=== PATIENT | female | born 1995 | race African-American/Black ===

== ENCOUNTER 2019-12-15 12:36 | Inpatient (IN) | payer MEDICAID ==
[~2019-12-15] VITALS: Ht 162.6 cm; Wt 68.5 kg
[2019-12-15] MEDS ORDERED: ZOLPIDEM TARTRATE 10 MG TABLET PO PRN (14:15)
[2019-12-15] MEDS ORDERED: CARI1.5C PO (14:25)
[2019-12-15] MEDS ORDERED: PROZ10 PO (14:26)
[2019-12-15] MEDS ORDERED: HYDR-4031 PO (14:27)
[2019-12-15] MEDS ORDERED: LITH600 PO (14:28)
[2019-12-15] MEDS ORDERED: PRAZ1 PO (14:28)
[2019-12-15 17:35] VITALS: BP 117/72
[2019-12-15] MEDS ORDERED: DiphenhydrAMINE HCL 50 MG/ML VIAL IM ONE (17:45)
[2019-12-15] MEDS ORDERED: LORazepam 2 MG/ML VIAL IM ONE (17:45)
[2019-12-15] MEDS ORDERED: HALOPERIDOL LACTATE 5 MG/ML VIAL IM ONE (17:45)
[2019-12-15] MEDS ORDERED: HALOPERIDOL LACTATE 5 MG/ML VIAL ONE (17:48)
[2019-12-15] MEDS ORDERED: DiphenhydrAMINE HCL 50 MG/ML VIAL ONE (17:48)
[2019-12-15] MEDS ORDERED: LORazepam 2 MG/ML VIAL ONE (17:48)
[2019-12-16 07:49] LABS: BASOPHILS % (AUTO) 0.4 % (0.0-2.0); EOSINOPHILS % (AUTO) 4.3 % (1.0-6.0); HEMATOCRIT 43.7 % (36-46); HEMOGLOBIN 14.5 g/dL (12.0-16.0); LYMPHOCYTES # (AUTO) 1.7 K/uL (1.0-4.8); LYMPHOCYTES % (AUTO) 40.6 % (22.0-44.0); MEAN CORPUSCULAR HEMOGLOBIN 28.8 pg (26.0-34.0); MEAN CORPUSCULAR HGB CONC 33.3 G/dL (31.0-37.0); MEAN CORPUSCULAR VOLUME 87 fL (80-100); MONOCYTES # (AUTO) 0.5 K/uL (0.1-1.0); MONOCYTES % (AUTO) 11.3 % (2.0-9.0); NEUTROPHILS # (AUTO) 1.8 K/uL (1.8-7.7); NEUTROPHILS % (AUTO) 43.4 % (40.0-70.0); PLATELET COUNT (AUTO) 226 K/uL (150-450); RED BLOOD CELL COUNT(AUTO) 5.05 MIL/uL (4.00-5.20); RED CELL DISTRIBUTION WIDTH 14.5 % (11.5-14.5)
[2019-12-16 08:07] LABS: ALANINE AMINOTRANSFERASE 22 U/L (12-78); ALBUMIN 3.8 g/dL (3.4-5.0); ALKALINE PHOSPHATASE 71 U/L (46-116); ANION GAP 8 mmol/L (8-16); ASPARTATE AMINOTRANSFERASE 25 U/L (15-37); BILIRUBIN,TOTAL 0.5 mg/dL (0.1-1.0); CARBON DIOXIDE 27 mmol/L (22-29); CHLORIDE 104 mmol/L (98-107); CREATININE 0.86 mg/dL (0.60-1.30); GLOMERULAR FILTR. RATE CALC > 60 mL/min (>60); GLUCOSE,RANDOM 68 mg/dL (70-110); HCG,QUANTITATIVE < 1 mIU/mL (0-6); POTASSIUM 4.2 mmol/L (3.5-5.1); SODIUM SERUM 139 mmol/L (136-145); TOTAL PROTEIN, SERUM 7.1 g/dL (6.4-8.2); UREA NITROGEN, BLOOD 9 mg/dL (7-18)
[2019-12-16] MEDS ORDERED: LOPERAMIDE HCL 2 MG CAPSULE PO PRN (08:30)
[2019-12-16] MEDS ORDERED: ONDANSETRON HCL 4 MG TABLET PO PRN (08:30)
[2019-12-16] MEDS ORDERED: GuaiFENesin/D-METHORPHAN [SUGAR-FREE] 200-20MG/10 ML SYRUP UDCUP PO PRN (08:30)
[2019-12-16] MEDS ORDERED: ALBUTEROL SULFATE HFA 90 MCG/PUFF 8 GM INHALER IH PRN (08:30)
[2019-12-16] MEDS ORDERED: PETROLATUM,WHITE 28 GM JELLY TP PRN (08:30)
[2019-12-16] MEDS ORDERED: MAG HYDROX/AL HYDROX/SIMETH ES 30 ML SUSPENSION UDCUP PO PRN (08:30)
[2019-12-16] MEDS ORDERED: MAGNESIUM HYDROXIDE SUSPENSION 30 ML UDCUP PO PRN (08:30)
[2019-12-16] MEDS ORDERED: ACETAMINOPHEN 325 MG TABLET PO PRN (08:30)
[2019-12-16] MEDS ORDERED: NICOTINE 14 MG/24 HOUR PATCH TD PRN (08:30)
[2019-12-16] MEDS ORDERED: DOCUSATE SODIUM 100 MG CAPSULE PO PRN (08:30)
[2019-12-16] MEDS ORDERED: CloNIDine HCL 0.1 MG TABLET PO PRN (08:30)
[2019-12-16] MEDS: BACITRACIN 28.4 GM OINTMENT TP SCH ×2 (09:12→17:11)
[2019-12-16] MEDS: FLUoxetine HCL 20 MG CAPSULE PO SCH (09:59)
[2019-12-16] MEDS: LORazepam 2 MG TABLET PO PRN (09:59)
[2019-12-16] MEDS: LITHIUM CARBONATE 600 MG CAPSULE PO SCH ×2 (09:59→17:11)
[2019-12-16 16:11] VITALS: BP 110/69
[2019-12-16] MEDS: CIPROFLOXACIN HCL 0.3% 2.5 ML OPHTHALMIC SOLUTION OS SCH (17:12)
[2019-12-16] MEDS: PRAZOSIN HCL 1 MG CAPSULE PO SCH (20:39)
[2019-12-16] MEDS: OLANZapine 5 MG TABLET PO SCH (20:39)
[2019-12-16] MEDS: QUEtiapine FUMARATE 100 MG TABLET PO SCH (20:41)
[2019-12-17 08:40] VITALS: BP 112/59
[2019-12-17] MEDS: LITHIUM CARBONATE 600 MG CAPSULE PO SCH ×2 (08:44→16:35)
[2019-12-17] MEDS: FLUoxetine HCL 20 MG CAPSULE PO SCH (08:44)
[2019-12-17] MEDS: CIPROFLOXACIN HCL 0.3% 2.5 ML OPHTHALMIC SOLUTION OS SCH ×2 (08:45→16:40)
[2019-12-17] MEDS: BACITRACIN 28.4 GM OINTMENT TP SCH ×2 (09:17→16:39)
[2019-12-17] MEDS: PRAZOSIN HCL 1 MG CAPSULE PO SCH (16:34)
[2019-12-17] MEDS: HALOPERIDOL 5 MG TABLET PO PRN (16:35)
[2019-12-17] MEDS: LORazepam 2 MG TABLET PO PRN (16:36)
[2019-12-17 17:30] VITALS: BP 113/67
[2019-12-17] MEDS: QUEtiapine FUMARATE 100 MG TABLET PO SCH (20:26)
[2019-12-17] MEDS: OLANZapine 5 MG TABLET PO SCH (20:26)
[2019-12-18 08:24] VITALS: BP 102/77
[2019-12-18] MEDS: LITHIUM CARBONATE 600 MG CAPSULE PO SCH ×2 (09:07→16:25)
[2019-12-18] MEDS: HALOPERIDOL 5 MG TABLET PO PRN (09:07)
[2019-12-18] MEDS: LORazepam 2 MG TABLET PO PRN (09:07)
[2019-12-18] MEDS: FLUoxetine HCL 20 MG CAPSULE PO SCH (09:07)
[2019-12-18] MEDS: BACITRACIN 28.4 GM OINTMENT TP SCH ×2 (09:34→16:24)
[2019-12-18] MEDS: CIPROFLOXACIN HCL 0.3% 2.5 ML OPHTHALMIC SOLUTION OS SCH ×2 (09:35→16:24)
[2019-12-18] MEDS ORDERED: DiphenhydrAMINE HCL 50 MG/ML VIAL ONE (11:44)
[2019-12-18] MEDS ORDERED: LORazepam 2 MG/ML VIAL ONE (11:44)
[2019-12-18] MEDS ORDERED: HALOPERIDOL LACTATE 5 MG/ML VIAL ONE (11:45)
[2019-12-18] MEDS ORDERED: LORazepam 2 MG/ML VIAL IM ONE (12:00)
[2019-12-18] MEDS ORDERED: HALOPERIDOL LACTATE 5 MG/ML VIAL IM ONE (12:00)
[2019-12-18] MEDS ORDERED: DiphenhydrAMINE HCL 50 MG/ML VIAL IM ONE (12:00)
[2019-12-18 17:05] VITALS: BP 110/75
[2019-12-18] MEDS: OLANZapine 5 MG TABLET PO SCH (20:54)
[2019-12-18] MEDS: PRAZOSIN HCL 1 MG CAPSULE PO SCH (20:54)
[2019-12-18] MEDS: QUEtiapine FUMARATE 100 MG TABLET PO SCH (20:54)
[2019-12-19 05:39] VITALS: BP 105/68
[2019-12-19] MEDS: FLUoxetine HCL 20 MG CAPSULE PO SCH (07:59)
[2019-12-19] MEDS: LITHIUM CARBONATE 600 MG CAPSULE PO SCH ×2 (07:59→16:18)
[2019-12-19] MEDS: BACITRACIN 28.4 GM OINTMENT TP SCH ×2 (08:01→16:19)
[2019-12-19] MEDS: CIPROFLOXACIN HCL 0.3% 2.5 ML OPHTHALMIC SOLUTION OS SCH ×2 (08:02→16:19)
[2019-12-19] MEDS: LORazepam 2 MG TABLET PO PRN ×2 (08:19→15:12)
[2019-12-19 08:40] VITALS: BP 136/68
[2019-12-19] MEDS: HALOPERIDOL 5 MG TABLET PO PRN (15:12)
[2019-12-19 16:18] VITALS: BP 111/57
[2019-12-19] MEDS: PRAZOSIN HCL 1 MG CAPSULE PO SCH (21:50)
[2019-12-19] MEDS: OLANZapine 5 MG TABLET PO SCH (21:50)
[2019-12-19] MEDS: QUEtiapine FUMARATE 100 MG TABLET PO SCH (21:50)
[2019-12-20 01:25] VITALS: BP 107/64
[2019-12-20] MEDS: LORazepam 2 MG TABLET PO PRN ×2 (07:11→16:00)
[2019-12-20] MEDS: BACITRACIN 28.4 GM OINTMENT TP SCH ×2 (08:09→16:00)
[2019-12-20] MEDS: CIPROFLOXACIN HCL 0.3% 2.5 ML OPHTHALMIC SOLUTION OS SCH ×2 (08:09→15:59)
[2019-12-20] MEDS: FLUoxetine HCL 20 MG CAPSULE PO SCH (08:09)
[2019-12-20] MEDS: LITHIUM CARBONATE 600 MG CAPSULE PO SCH ×2 (08:09→15:59)
[2019-12-20 08:42] VITALS: BP 138/90
[2019-12-20] MEDS ORDERED: LORazepam 2 MG/ML VIAL IM ONE (10:15)
[2019-12-20] MEDS ORDERED: HALOPERIDOL LACTATE 5 MG/ML VIAL IM ONE (10:15)
[2019-12-20] MEDS ORDERED: DiphenhydrAMINE HCL 50 MG/ML VIAL IM ONE (10:15)
[2019-12-20] MEDS: HALOPERIDOL 5 MG TABLET PO PRN (15:59)
[2019-12-20] MEDS: IBUPROFEN 400 MG TABLET PO PRN (16:00)
[2019-12-20 16:13] VITALS: BP 108/60
[2019-12-20] MEDS: OLANZapine 5 MG TABLET PO SCH (20:21)
[2019-12-20] MEDS: QUEtiapine FUMARATE 100 MG TABLET PO SCH (20:21)
[2019-12-20] MEDS: PRAZOSIN HCL 1 MG CAPSULE PO SCH (20:35)
[2019-12-21 04:28] VITALS: BP 118/74
[2019-12-21 08:01] LABS: APPEARANCE,URINE CLEAR (CLEAR); BILIRUBIN,URINE NEGATIVE (NEGATIVE); GLUCOSE, URINE (UA) NEGATIVE (NEGATIVE); KETONES,URINE NEGATIVE (NEGATIVE); LEUKOCYTE ESTERASE ,URINE NEGATIVE (NEGATIVE); NITRATE,URINE NEGATIVE (NEGATIVE); OCCULT BLOOD,URINE NEGATIVE (NEGATIVE); PH,URINE 6.5 (5.0-8.0); PROTEIN,URINE NEGATIVE (NEGATIVE); UROBILINOGEN,URINE 0.2 mg/dL (<=1.0)
[2019-12-21] MEDS: BACITRACIN 28.4 GM OINTMENT TP SCH (08:01)
[2019-12-21] MEDS: CIPROFLOXACIN HCL 0.3% 2.5 ML OPHTHALMIC SOLUTION OS SCH (08:01)
[2019-12-21] MEDS: LITHIUM CARBONATE 600 MG CAPSULE PO SCH (08:01)
[2019-12-21] MEDS: FLUoxetine HCL 20 MG CAPSULE PO SCH (08:01)
[2019-12-21 08:11] LABS: AMPHET/METH SCREEN,URINE NEGATIVE (NEGATIVE); BARBITURATE SCREEN, URINE NEGATIVE (NEGATIVE); BENZODIAZEPINES SCREEN,URINE NEGATIVE (NEGATIVE); CANNABINOID SCREEN,URINE POSITIVE (NEGATIVE); COCAINE SCREEN,URINE NEGATIVE (NEGATIVE); METHADONE SCREEN, URINE NEGATIVE (NEGATIVE); OPIATE SCREEN,URINE NEGATIVE (NEGATIVE)
[2019-12-21 08:12] LABS: PHENCYCLIDINE SCREEN,URINE NEGATIVE (NEGATIVE)
[2019-12-21 08:20] VITALS: BP 123/80
[2019-12-21] MEDS: IBUPROFEN 400 MG TABLET PO PRN (08:45)
[2019-12-21] MEDS ORDERED: QUET100T PO (09:26)
[2019-12-21] MEDS ORDERED: OLAN5TAB2 PO (09:26)
== END 2019-12-21 11:15 | disposition home or self-care (01) | DRG 753 ==
LOC: B3A 17:25
PROVIDERS: ADMIT Psychiatry & Neurology Child & Adolescent Psychiatry; ATTEND Psychiatry & Neurology Child & Adolescent Psychiatry
DX: F31.4 Bipolar disorder, current episode depressed, severe, without psychotic features (principal); H10.9 Unspecified conjunctivitis; F12.10 Cannabis abuse, uncomplicated; D72.819 Decreased white blood cell count, unspecified; K62.5 Hemorrhage of anus and rectum; F19.10 Other psychoactive substance abuse, uncomplicated; R45.851 Suicidal ideations; Z59.0 Homelessness; Z88.8 Allergy status to other drugs, medicaments and biological substances; Z91.018 Allergy to other foods
CPT/HCPCS: 80307; 87081; J1200; J1630; J2060

== ENCOUNTER 2020-10-09 20:31 | Emergency (ER) | payer MEDICAID ==
[~2020-10-09] VITALS: Ht 162.6 cm; Wt 77.3 kg
[~2020-10-09 20:31] MED LIST: FLUO10CA24 PO; LITH600C5 PO; OLAN5TAB52 PO; PRAZ1 PO; QUET100T PO
[2020-10-09] MEDS ORDERED: MIRT-93 PO (20:43)
[2020-10-09] MEDS ORDERED: IBUPROFEN 600 MG TABLET PO ONE (21:00)
[2020-10-09] MEDS ORDERED: ACETAMINOPHEN 500 MG TABLET PO ONE (21:00)
[2020-10-09 22:49] VITALS: BP 119/68
== END 2020-10-09 22:56 | disposition home or self-care (01) ==
LOC: EMS 20:36
DX: S00.83XA Contusion of other part of head, initial encounter (principal); Z91.018 Allergy to other foods; Z79.899 Other long term (current) drug therapy; Y08.89XA Assault by other specified means, initial encounter; Y93.89 Activity, other specified; Y92.89 Other specified places as the place of occurrence of the external cause; Y99.8 Other external cause status
CPT/HCPCS: 70486; 99284; Z7502; Z7610

== ENCOUNTER 2021-08-17 18:30 | Emergency (ER) | payer MEDICAID ==
[~2021-08-17] VITALS: Ht 154.9 cm; Wt 76.8 kg
[~2021-08-17 18:30] MED LIST changes: +MIRT-93 PO
[2021-08-17 19:05] LABS: BASOPHILS % (AUTO) 0.5 % (0.0-2.0); EOSINOPHILS % (AUTO) 2.1 % (1.0-6.0); HEMATOCRIT 36.4 % (36-46); HEMOGLOBIN 12.4 g/dL (12.0-16.0); LYMPHOCYTES # (AUTO) 2.4 K/uL (1.0-4.8); LYMPHOCYTES % (AUTO) 23.3 % (22.0-44.0); MEAN CORPUSCULAR HEMOGLOBIN 29.8 pg (26.0-34.0); MEAN CORPUSCULAR HGB CONC 33.9 G/dL (31.0-37.0); MEAN CORPUSCULAR VOLUME 88 fL (80-100); MONOCYTES # (AUTO) 0.7 K/uL (0.1-1.0); MONOCYTES % (AUTO) 7.2 % (2.0-9.0); NEUTROPHILS # (AUTO) 6.9 K/uL (1.8-7.7); NEUTROPHILS % (AUTO) 66.9 % (40.0-70.0); PLATELET COUNT (AUTO) 255 K/uL (150-450); RED BLOOD CELL COUNT(AUTO) 4.15 MIL/uL (4.00-5.20); RED CELL DISTRIBUTION WIDTH 15.7 % (11.5-14.5)
[2021-08-17 19:10] LABS: ANION GAP 10 mmol/L (8-16); CALCIUM, TOTAL 8.5 mg/dL (8.8-10.5); CARBON DIOXIDE 25 mmol/L (22-29); CHLORIDE 104 mmol/L (98-107); CREATININE 0.62 mg/dL (0.60-1.30); GLOMERULAR FILTR. RATE CALC > 60 mL/min (>60); GLUCOSE,RANDOM 92 mg/dL (70-110); POTASSIUM 3.8 mmol/L (3.5-5.1); SODIUM SERUM 139 mmol/L (136-145); UREA NITROGEN, BLOOD 7 mg/dL (7-18)
[2021-08-17 19:40] LABS: ALANINE AMINOTRANSFERASE 41 U/L (12-78); ALBUMIN 3.5 g/dL (3.4-5.0); ALKALINE PHOSPHATASE 58 U/L (46-116); ASPARTATE AMINOTRANSFERASE 11 U/L (15-37); BILIRUBIN,TOTAL 0.2 mg/dL (0.1-1.0); HCG,QUANTITATIVE 28513 mIU/mL (0-6); TOTAL PROTEIN, SERUM 6.6 g/dL (6.4-8.2)
[2021-08-17 19:55] LABS: APPEARANCE,URINE CLEAR (CLEAR); BILIRUBIN,URINE NEGATIVE (NEGATIVE); GLUCOSE, URINE (UA) NEGATIVE (NEGATIVE); KETONES,URINE NEGATIVE (NEGATIVE); LEUKOCYTE ESTERASE ,URINE TRACE (NEGATIVE); NITRATE,URINE NEGATIVE (NEGATIVE); OCCULT BLOOD,URINE SMALL (NEGATIVE); PROTEIN,URINE NEGATIVE (NEGATIVE); SPECIFIC GRAVITIY, URINE 1.019 (1.003-1.030); UROBILINOGEN,URINE <=1.0 mg/dL (<=1.0)
[2021-08-17 20:01] LABS: BACTERIA,URINE Few /HPF (None Seen); SQUAMOUS EPITHELIAL CELL,UR Moderate /LPF (None Seen)
[2021-08-17 20:52] VITALS: BP 109/64
== END 2021-08-17 21:05 | disposition home or self-care (01) ==
LOC: EMS 18:50
DX: O20.0 Threatened abortion (principal); O99.341 Other mental disorders complicating pregnancy, first trimester; Z91.018 Allergy to other foods; Z88.8 Allergy status to other drugs, medicaments and biological substances; Z3A.01 Less than 8 weeks gestation of pregnancy
CPT/HCPCS: 76801; 76817; 80053; 81001; 84702; 85025; 86901; 99284